=== PATIENT | male | born 1955 | race Caucasian/White ===

== ENCOUNTER 2022-12-27 18:21 | Emergency (ER) | payer OTHER, MEDICARE ==
[~2022-12-27] VITALS: Ht 175.3 cm; Wt 95.2 kg
[2022-12-27] MEDS ORDERED: ELIQUIS5 M2 PO (19:27)
[2022-12-27] MEDS ORDERED: ATOR20 PO (19:27)
[2022-12-27] MEDS ORDERED: OMEP20ER PO (19:28)
[2022-12-27] MEDS ORDERED: ZOLP10 PO (19:28)
[2022-12-27] MEDS ORDERED: LINZESS145 MCG PO (19:30)
[2022-12-27] MEDS ORDERED: METO25ER (19:30)
[2022-12-27] MEDS ORDERED: GABA800 PO (19:30)
[2022-12-27] MEDS ORDERED: ONDA4 PO (19:31)
[2022-12-27] MEDS ORDERED: Seroquel Xr50 MG PO (19:31)
[2022-12-27] MEDS ORDERED: PRAZ2 PO (19:31)
[2022-12-27] MEDS ORDERED: PARO20 PO (19:31)
[2022-12-27] MEDS ORDERED: TIZA4 PO (19:32)
[2022-12-27] MEDS ORDERED: TAMS.4ER PO (19:32)
[2022-12-27 22:00] VITALS: BP 147/95
== END 2022-12-27 22:05 | disposition home or self-care (01) ==
LOC: ER 18:21
DX: S10.83XA Contusion of other specified part of neck, initial encounter (principal); W01.190A Fall on same level from slipping, tripping and stumbling with subsequent striking against furniture, initial encounter; Z95.0 Presence of cardiac pacemaker
CPT/HCPCS: 70450; 72125; 93005; 93010; 96374; 99284-25; A9270; J1885